=== PATIENT | female | born 1985 | race Caucasian/White ===

== ENCOUNTER 2017-02-16 22:20 | Emergency (ER) | payer OTHER ==
[2017-02-16 22:39] VITALS: BP 110/73; PULSE 16; TEMP 99.2; BMI 30.2
--- NOTE | 2017-02-16 22:48 | PDOC ---
History of Present Illness - General Chief Complaint: Chest Pain Stated Complaint: EPISODES OF SHARP LEFT CHEST/ARM PAIN Time Seen by Provider: 02/16/17 22:47 History Source: Patient Exam Limitations: No Limitations - History of Present Illness Initial Comments: 02/16/17 22:51 This is a 31-year-old female who comes in complaining of several brief episodes of left-sided sharp chest pain while driving this evening. Patient said the episodes lasted a few seconds and were spaced 4-5 minutes apart. Patient said that it is been proximate 45 hours since the last episode. Patient denied any trauma or injury. Patient denied any pain in her neck. Patient denied any history of similar symptoms in the past. Patient said she has not been working out or doing any other unusual physical activity. The pain was sharp in nature and not associated with any nausea, diaphoresis or palpitations. The pain did radiate to her left arm however radiating down the outside of her left arm to about her elbow. PAST MEDICAL HISTORY: no significant history PAST SURGICAL HISTORY: no significant history FAMILY HISTORY: no pertinant history SOCIAL HISTORY: Pt lives with family and is employed. MEDICATIONS: reviewed ALLERGIES: As per nursing notes Review of Systems General: No fevers or chills, no weakness, no weight loss HEENT: No change in vision. No sore throat,. No ear pain CardioVascular: No chest pain or shortness of breath Respiratory:No cough, or wheezing. Gastrointestinal: no nausea, vomitting, diarrhea or constipation, No rectal bleeding Genitourinary: No dysuria, hematuria, or frequency Musculoskeletal: No joint or muscle pain or swelling Neurologic: No headache, vertigo, dizziness or loss of consciousness Psychiatric: nor depression Skin: No rashes or easy bruising Endocrine: no increased thirst or abnormal weight change Allergic: no skin or latex allergy All other systems reviewed and normal Exam: General: Well-nourished well-developed individual, no acute distress Eyes::Pupils equal reactive and round, extraocular motion intact Chest: Nontender to palpation Cardiac: S1-S2 normal, regular rate and rhythm, no murmurs rubs or gallops Respiratory: Lungs clear to auscultation bilateral Extremities: Warm, dry, no cyanosis, clubbing, or edema Skin: No rashes Neuro: Alert and oriented x3, nonfocal exam, grossly intact, normal gait Psych: Normal mood and affect EKG: Past History - Past Medical History Allergies/Adverse Reactions: Allergies Allergy/AdvReac Type Severity Reaction Status Date / Time sesame seed Allergy Severe Swelling Verified 02/16/17 22:30 shellfish derived Allergy Verified 10/23/16 16:46 Home Medications: Ambulatory Orders NK [No Known Home Medication] 02/16/17 Asthma: Yes - Surgical History Appendectomy: Yes Cholecystectomy: Yes - Immunization History Immunization Up to Date: Yes - Psycho/Social/Smoking Cessation Hx Anxiety: No Suicidal Ideation: No Smoking Status: No Smoking History: Never smoked Have you smoked in the past 12 months: No Number of Cigarettes Smoked Daily: 0 Hx Alcohol Use: No Drug/Substance Use Hx: No Substance Use Type: None *Physical Exam - Vital Signs Last Vital Signs Temp Pulse Resp BP Pulse Ox 99.2 F 16 L 83 H 110/73 96 02/16/17 22:29 02/16/17 22:29 02/16/17 22:29 02/16/17 22:29 02/16/17 22:29 *DC/Admit/Observation/Transfer Diagnosis at time of Disposition: Atypical chest pain - Discharge Dispostion Disposition: HOME Condition at time of disposition: Good Admit: No - Patient Instructions Printed Discharge Instructions: DI for Atypical Chest Pain Additional Instructions: If symptoms return you can take Tylenol or Motrin for the pain. Return to the emergency department immediately with ANY new, persistent or worsening symptoms. Continue any medications as previously prescribed by your physician. You should follow up with your primary doctor as soon as possible regarding today's emergency department visit. . Please make sure your doctor reviews the results of your emergency evaluation. Thank you for coming to the Emergency Department today for your care. It was a pleasure to see you today. Please note that your evaluation is INCOMPLETE until you follow-up with your doctor.
--- NOTE | 2017-02-20 10:00 | EKG ---
Test Reason : Blood Pressure : / mmHG Vent. Rate : 077 BPM Atrial Rate : 077 BPM P-R Int : 176 ms QRS Dur : 086 ms QT Int : 382 ms P-R-T Axes : 001 042 032 degrees QTc Int : 432 ms NORMAL SINUS RHYTHM NO PREVIOUS ECGS AVAILABLE Confirmed by MD DAVILA MARJORY ([id number]) on 02/20/2017 10:00:08 AM Referred By: MD VINCENT Confirmed By:JONATHAN DAVILA MD
== END 2017-02-16 23:14 | disposition home or self-care (01) ==
LOC: FER 22:20
DX: R07.89 Other chest pain (principal); J45.909 Unspecified asthma, uncomplicated
CPT/HCPCS: 93005; 99282-25